=== PATIENT | female | born 1955 | race Caucasian/White ===

== ENCOUNTER → 2017-07-31 | Outpatient (CLI) | payer OTHER ==
[~2017-07-31] MED LIST: ASPIRIN EC325 M1 PO; AZULFIDINE500 MG PO; DONNATAL1 TAB PO; LIALDA1.2 GM PO; LIVALO1 MG PO; LIVALO2 MG PO; MOTRIN600 M1 PO; NOMEDS XX; PREDNISONE 20MG20 MG PO
--- NOTE | 2017-08-01 06:34 | RADIOLOGY REPORT PS360 ---
MRI-C-SPINE W/O, MRI-3D RENDERING/MYELOGRAM HISTORY: Neck pain, bilateral shoulder pain worse on the right, right arm pain and numbness NECK PAIN ORDERING PHYSICIAN: Jaun Powell MD PATIENT AGE: 62 years COMPARISON: None TECHNIQUE: Standard multiplanar multiecho sequences are performed without contrast. 3-D MIP and myelographic images are also rendered and reviewed FINDINGS: There is normal alignment. The craniocervical junction has an unremarkable appearance. C2-C3: Unremarkable. C3-C4: Unremarkable. C4-C5: Mild degenerative disc disease with minimal anterolisthesis of C4 of 2 mm. Small right-sided uncovertebral disc osteophyte complex with moderate right-sided foraminal narrowing. C5-C6: Degenerative disc disease with bulging disc. There is a small uncovertebral disc osteophyte complex on the left with moderate left lateral recess and foraminal narrowing. There is mild narrowing of the canal without cord impingement. C6-C7: Mild degenerative disc disease with minimal anterolisthesis of C6. C7-T1: Minimal anterolisthesis of C7. No extruded herniated disc. IMPRESSION: 1. Mild cervical spondylosis with degenerative disc disease as detailed above. 2. Mild degenerative disc disease C4-C5 with right-sided foraminal narrowing from small disc osteophyte complex at the uncovertebral region 3. Small disc osteophyte complex at C5-C6 of the left uncovertebral region with moderate left lateral recess and foraminal narrowing and mild canal stenosis
== END ==
LOC: RAD 15:47
DX: M54.2 Cervicalgia (principal)